=== PATIENT | male | born 1975 | race African-American/Black ===

== ENCOUNTER 2018-03-04 19:33 | Inpatient (IN) ==
[2018-03-04] MEDS ORDERED: Sodium Chlor 0.9% Inj 500 ML IV.SIG ONE (22:14)
--- NOTE | 2018-03-04 22:34 | ED ---
HPI General Chief complaint: Dizziness Stated complaint: cold symp Time Seen by Provider: 03/04/18 22:09 Source: patient Mode of arrival: ambulatory History of Present Illness HPI narrative: The patient is a 42 year old male who presents to the [facility] emergency department with a history of feeling lightheaded and dizzy with standing for the last 2 weeks. He reports that this is gradually been getting worse with time. He reports that he has had urinary frequency and urgency associated with this. He reports having polydipsia, generalized fatigue. He reports that he has not had any appetite and lost weight over the last 2 weeks. He denies having a primary care physician. On review of systems otherwise, the patient reports that he has had intermittent chest pain recently. He reports that he is also had shortness of breath with exertion. He denies having any recent fevers, cough or congestion, neck pain, abdominal pain, vomiting, diarrhea, or neurologic symptoms Related Data Home Medications Medication Instructions Recorded Confirmed No Known Home Medications 03/04/18 03/04/18 Allergies Allergy/AdvReac Type Severity Reaction Status Date / Time No Known Allergies Allergy Unverified 03/04/18 22:13 Review of Systems Except as stated in HPI: all other systems reviewed are negative PMFSH Medical History Medical History Patient denies medical problems (Acute) Surgical History Surgical History No history of previous surgery (Acute) No history of previous surgery (Acute) Social History Social History Substance History: Active Abuse Second Hand Smoke Exposure: Yes Smoking Status: Current some day smoker Tobacco Type: Cigarettes How Often Do You Have a Drink Containing Alcohol: 2 to 4 times a month Recent Travel in [facility] within the Last 8 Weeks: No Substance Abuse Detail Marijuana: Substance Use Status: Active Route Used Substance Abuse: Inhalation Substance Frequency: OCC Reason for Use: Socialization Immunization History Tetanus Immunization: Unsure Hx Influenza Vaccine This Season: No Exam Narrative Exam Narrative: General: The patient is a well-developed well-nourished male in no acute distress Head and Neck exam: Head is normocephalic atraumatic. Eyes: EOMI, pupils are equal round and reactive to light. Nose: Midline septum with pink mucous membranes Mouth: Dentition unremarkable. Dry mucus membranes. Posterior oropharynx is not erythematous. No tonsillar hypertrophy. Uvula midline. Airway patent. Neck: No palpable lymphadenopathy. No nuchal rigidity. No thyromegaly. Cardiovascular: Regular rate and rhythm without murmurs, gallops, or rubs. No pulse deficit to the extremities on simultaneous auscultation and palpation of his radial artery. Lungs: Clear to auscultation bilaterally. No wheezes, rhonchi, or rales. Abdomen: Soft, without tenderness to palpation in all 4 quadrants of the abdomen. No guarding, rebound, or rigidity. Normal bowel sounds are audible. Negative Hummel's sign. No tenderness on palpation of McBurney's point. Extremities: No clubbing, cyanosis, or edema. 2+ pulses in all 4 extremities. No calf tenderness on palpation. Back: No spinous process tenderness to palpation. Bilateral CVA tenderness reported on palpation. Neurologic Exam: Grossly nonfocal. Skin Exam: No rash noted. Intact skin that is warm and dry. Course Hospital Course: During the course of the patient's emergency department visit, the patient's history, examination, and differential diagnosis were reviewed with the patient. The patient was placed on a rug cleaner hand with oximetry and frequent blood pressure monitoring. The patient had IV access obtained and blood work sent for analysis. The patient was initially provided normal saline 1 L IV fluid bolus. The patient after laboratory studies were done was noted to have acute renal failure. The patient was given a second liter of normal saline IV fluids. Regarding the patient's hyperkalemia the patient was treated with Kayexalate 15 g p.o. 1, regular insulin 10 units IV to treat his hyperglycemia, 1 amp of bicarb, and calcium chloride to stabilize his cardiac membranes. The patient's results were discussed with the patient, including the plan of care. I explained that further testing and/ or monitoring is indicated based on the patient's history, examination, and/ or laboratory findings. Therefore, I recommended admission for additional evaluation. The patient expressed understanding and was agreeable with this plan. The patient was admitted to the hospital in guarded condition and sent to a bed under the care of [facility] service. Consultations Consultation #1: The patient's case including history, pertinent physical examination findings, and laboratory studies were discussed with . It was agreed that the patient would be admitted to the hospitalist service. Time: 00:20 Initial Documented Vital Signs Temperature 98.2 F 03/04/18 19:54 Pulse Rate 95 H 03/04/18 19:54 Blood Pressure 148/97 H 03/04/18 19:54 Pulse Oximetry 98 03/04/18 19:54 Last Documented Vital Signs Temperature 98.2 F 03/04/18 19:54 Pulse Rate 60 03/05/18 06:53 Respiratory Rate 16 03/05/18 06:53 Blood Pressure 155/78 H 03/05/18 06:53 Pulse Oximetry 100 03/05/18 06:53 Medical Decision Making MDM Narrative Medical decision making narrative: The patients laboratory studies remarkable for a white count of 10.6, hemoglobin 17.5, platelets 333 with neutrophils that are 86.1. PT PTT unremarkable, chemistry is remarkable for a glucose that is 1038, potassium 6.6, renal failure noted with a creatinine of 2.35, lipase within normal limits, chloride 89, bicarb 23.6, BUN 41, alk phos 122, albumin 5.2, urinalysis showed small occult blood, 500 greater glucose, alcohol level less than 3. Radiology studies were remarkable for a chest x-ray that shows no acute abnormality. CT scan of the brain shows no acute abnormality. The patient will be admitted to the hospital for acute renal failure with new onset diabetes. Differential Diagnosis Differential Diagnosis: New-onset diabetes, versus orthostasis, versus dehydration, versus electrolyte derangements Medical Records Medical records reviewed: Yes I reviewed the patient's medical records. Lab Data Lab results reviewed: Yes I reviewed the patient's lab results. Result diagrams: 03/05/18 02:43 03/05/18 02:43 Lab Results 03/04/18 03/04/18 03/04/18 Range/Units 22:36 22:36 22:36 WBC 10.6 (4.0-11.0) th/mm3 RBC 5.95 H (4.50-5.90) mil/mm3 Hgb 17.5 H (13.0-17.0) gm/dL Hct 54.2 H (39.0-51.0) % MCV 91.1 (80.0-100.0) fL MCH 29.4 (27.0-34.0) pg MCHC 32.2 (32.0-36.0) % RDW 12.8 (11.6-17.2) % Plt Count 333 (150-450) th/mm3 MPV 10.0 (7.0-11.0) fL Neut % (Auto) 86.1 H (16.0-70.0) % Lymph % (Auto) 9.7 (9.0-44.0) % Levy % (Auto) 3.1 (0.0-8.0) % Eos % (Auto) 0.1 (0.0-4.0) % Baso % (Auto) 1.0 (0.0-2.0) % Neut # (Auto) 9.2 H (1.8-7.7) th/mm3 Lymph # (Auto) 1.0 (1.0-4.8) th/mm3 Levy # (Auto) 0.3 (0.0-0.9) th/mm3 Eos # (Auto) 0.0 (0.0-0.4) th/mm3 Baso # (Auto) 0.1 (0.0-0.2) th/mm3 WBC Differential . Differential Comment Auto diff final PT (9.8-11.6) sec INR Ratio APTT (24.3-30.1) sec Sodium 127 L (136-145) meq/L Potassium 6.6 H* (3.5-5.1) meq/L Chloride 89 L (98-107) meq/L Carbon Dioxide 23.6 (21.0-32.0) meq/L Anion Gap 14 (5-15) meq/L BUN 41 H (7-18) mg/dL Creatinine 2.35 H (0.60-1.30) mg/dL Estimated GFR 37 L (>89) mL/min POC Glucose (68-110) mg/dl Random Glucose 1038 H* (74-106) mg/dL Calcium 11.1 H (8.5-10.1) mg/dL Magnesium 3.2 H (1.5-2.5) mg/dL Total Bilirubin 0.4 (0.2-1.0) mg/dL AST 22 (15-37) U/L ALT 28 (12-78) U/L Alkaline Phosphatase 122 H (45-117) U/L Total Creatine Kinase 337 H (39-308) U/L CK-MB (CK-2) 0.9 (0.5-3.6) ng/mL CK-MB (CK-2) % 0.3 (0.0-4.0) % Troponin I Less than 0.02 L (0.02-0.05) ng/mL B-Natriuretic Peptide 4 (0-100) pg/mL Total Protein 10.3 H (6.4-8.2) g/dL Albumin 5.2 H (3.4-5.0) g/dL Lipase 236 (73-393) U/L Urine Color (Yellw/Straw) Urine Clarity (Clear) Urine pH (5.0-8.5) Ur Specific Sutton (1.002-1.035) Urine Protein (Neg-Trace) mg/dL Urine Glucose (UA) (Negative) mg/dL Urine Ketones (Negative) mg/dL Urine Occult Blood (Negative) Urine Nitrate (Negative) Urine Bilirubin (Negative) Urine Urobilinogen (Less than 2) mg/dL Ur Leukocyte Esterase (Negative) Urine RBC (0-3) /hpf Urine WBC (0-5) /hpf Micro UA Comment Urine Culture Comments Serum Alcohol Less than 3 (0-5) mg/dL 03/04/18 03/04/18 03/05/18 Range/Units 22:36 22:40 00:01 WBC (4.0-11.0) th/mm3 RBC (4.50-5.90) mil/mm3 Hgb (13.0-17.0) gm/dL Hct (39.0-51.0) % MCV (80.0-100.0) fL MCH (27.0-34.0) pg MCHC (32.0-36.0) % RDW (11.6-17.2) % Plt Count (150-450) th/mm3 MPV (7.0-11.0) fL Neut % (Auto) (16.0-70.0) % Lymph % (Auto) (9.0-44.0) % Levy % (Auto) (0.0-8.0) % Eos % (Auto) (0.0-4.0) % Baso % (Auto) (0.0-2.0) % Neut # (Auto) (1.8-7.7) th/mm3 Lymph # (Auto) (1.0-4.8) th/mm3 Levy # (Auto) (0.0-0.9) th/mm3 Eos # (Auto) (0.0-0.4) th/mm3 Baso # (Auto) (0.0-0.2) th/mm3 WBC Differential Differential Comment PT 10.2 (9.8-11.6) sec INR 1.0 Ratio APTT 24.9 (24.3-30.1) sec Sodium (136-145) meq/L Potassium (3.5-5.1) meq/L Chloride (98-107) meq/L Carbon Dioxide (21.0-32.0) meq/L Anion Gap (5-15) meq/L BUN (7-18) mg/dL Creatinine (0.60-1.30) mg/dL Estimated GFR (>89) mL/min POC Glucose Greater than 600 H* (68-110) mg/dl Random Glucose (74-106) mg/dL Calcium (8.5-10.1) mg/dL Magnesium (1.5-2.5) mg/dL Total Bilirubin (0.2-1.0) mg/dL AST (15-37) U/L ALT (12-78) U/L Alkaline Phosphatase (45-117) U/L Total Creatine Kinase (39-308) U/L CK-MB (CK-2) (0.5-3.6) ng/mL CK-MB (CK-2) % (0.0-4.0) % Troponin I (0.02-0.05) ng/mL B-Natriuretic Peptide (0-100) pg/mL Total Protein (6.4-8.2) g/dL Albumin (3.4-5.0) g/dL Lipase (73-393) U/L Urine Color Straw (Yellw/Straw) Urine Clarity Clear (Clear) Urine pH 5.0 (5.0-8.5) Ur Specific Sutton 1.028 (1.002-1.035) Urine Protein Negative (Neg-Trace) mg/dL Urine Glucose (UA) 500 or greater (Negative) mg/dL Urine Ketones Trace (Negative) mg/dL Urine Occult Blood Small H (Negative) Urine Nitrate Negative (Negative) Urine Bilirubin Negative (Negative) Urine Urobilinogen Less than 2 (Less than 2) mg/dL Ur Leukocyte Esterase Negative (Negative) Urine RBC 1 (0-3) /hpf Urine WBC Less than 1 (0-5) /hpf Micro UA Comment Culture not ind Urine Culture Comments Culture not ind Serum Alcohol (0-5) mg/dL 03/05/18 03/05/18 03/05/18 Range/Units 01:15 02:43 02:43 WBC 10.4 (4.0-11.0) th/mm3 RBC 5.48 (4.50-5.90) mil/mm3 Hgb 16.1 (13.0-17.0) gm/dL Hct 48.5 (39.0-51.0) % MCV 88.5 (80.0-100.0) fL MCH 29.4 (27.0-34.0) pg MCHC 33.2 (32.0-36.0) % RDW 12.5 (11.6-17.2) % Plt Count 292 (150-450) th/mm3 MPV 9.7 (7.0-11.0) fL Neut % (Auto) 82.9 H (16.0-70.0) % Lymph % (Auto) 11.2 (9.0-44.0) % Levy % (Auto) 5.1 (0.0-8.0) % Eos % (Auto) 0.1 (0.0-4.0) % Baso % (Auto) 0.7 (0.0-2.0) % Neut # (Auto) 8.6 H (1.8-7.7) th/mm3 Lymph # (Auto) 1.2 (1.0-4.8) th/mm3 Levy # (Auto) 0.5 (0.0-0.9) th/mm3 Eos # (Auto) 0.0 (0.0-0.4) th/mm3 Baso # (Auto) 0.1 (0.0-0.2) th/mm3 WBC Differential . Differential Comment Auto diff final PT (9.8-11.6) sec INR Ratio APTT (24.3-30.1) sec Sodium 140 D (136-145) meq/L Potassium 4.7 D (3.5-5.1) meq/L Chloride 105 D (98-107) meq/L Carbon Dioxide 24.6 (21.0-32.0) meq/L Anion Gap 10 (5-15) meq/L BUN 36 H (7-18) mg/dL Creatinine 1.80 H (0.60-1.30) mg/dL Estimated GFR 51 L (>89) mL/min POC Glucose Greater than 600 H* (68-110) mg/dl Random Glucose 650 H* D (74-106) mg/dL Calcium 10.9 H (8.5-10.1) mg/dL Magnesium (1.5-2.5) mg/dL Total Bilirubin 0.4 (0.2-1.0) mg/dL AST 17 (15-37) U/L ALT 27 (12-78) U/L Alkaline Phosphatase 103 (45-117) U/L Total Creatine Kinase (39-308) U/L CK-MB (CK-2) (0.5-3.6) ng/mL CK-MB (CK-2) % (0.0-4.0) % Troponin I (0.02-0.05) ng/mL B-Natriuretic Peptide (0-100) pg/mL Total Protein 8.7 H D (6.4-8.2) g/dL Albumin 4.4 D (3.4-5.0) g/dL Lipase (73-393) U/L Urine Color (Yellw/Straw) Urine Clarity (Clear) Urine pH (5.0-8.5) Ur Specific Sutton (1.002-1.035) Urine Protein (Neg-Trace) mg/dL Urine Glucose (UA) (Negative) mg/dL Urine Ketones (Negative) mg/dL Urine Occult Blood (Negative) Urine Nitrate (Negative) Urine Bilirubin (Negative) Urine Urobilinogen (Less than 2) mg/dL Ur Leukocyte Esterase (Negative) Urine RBC (0-3) /hpf Urine WBC (0-5) /hpf Micro UA Comment Urine Culture Comments Serum Alcohol (0-5) mg/dL 03/05/18 03/05/18 Range/Units 03:08 06:51 WBC (4.0-11.0) th/mm3 RBC (4.50-5.90) mil/mm3 Hgb (13.0-17.0) gm/dL Hct (39.0-51.0) % MCV (80.0-100.0) fL MCH (27.0-34.0) pg MCHC (32.0-36.0) % RDW (11.6-17.2) % Plt Count (150-450) th/mm3 MPV (7.0-11.0) fL Neut % (Auto) (16.0-70.0) % Lymph % (Auto) (9.0-44.0) % Levy % (Auto) (0.0-8.0) % Eos % (Auto) (0.0-4.0) % Baso % (Auto) (0.0-2.0) % Neut # (Auto) (1.8-7.7) th/mm3 Lymph # (Auto) (1.0-4.8) th/mm3 Levy # (Auto) (0.0-0.9) th/mm3 Eos # (Auto) (0.0-0.4) th/mm3 Baso # (Auto) (0.0-0.2) th/mm3 WBC Differential Differential Comment PT (9.8-11.6) sec INR Ratio APTT (24.3-30.1) sec Sodium (136-145) meq/L Potassium (3.5-5.1) meq/L Chloride (98-107) meq/L Carbon Dioxide (21.0-32.0) meq/L Anion Gap (5-15) meq/L BUN (7-18) mg/dL Creatinine (0.60-1.30) mg/dL Estimated GFR (>89) mL/min POC Glucose 579 H* 508 H* (68-110) mg/dl Random Glucose (74-106) mg/dL Calcium (8.5-10.1) mg/dL Magnesium (1.5-2.5) mg/dL Total Bilirubin (0.2-1.0) mg/dL AST (15-37) U/L ALT (12-78) U/L Alkaline Phosphatase (45-117) U/L Total Creatine Kinase (39-308) U/L CK-MB (CK-2) (0.5-3.6) ng/mL CK-MB (CK-2) % (0.0-4.0) % Troponin I (0.02-0.05) ng/mL B-Natriuretic Peptide (0-100) pg/mL Total Protein (6.4-8.2) g/dL Albumin (3.4-5.0) g/dL Lipase (73-393) U/L Urine Color (Yellw/Straw) Urine Clarity (Clear) Urine pH (5.0-8.5) Ur Specific Sutton (1.002-1.035) Urine Protein (Neg-Trace) mg/dL Urine Glucose (UA) (Negative) mg/dL Urine Ketones (Negative) mg/dL Urine Occult Blood (Negative) Urine Nitrate (Negative) Urine Bilirubin (Negative) Urine Urobilinogen (Less than 2) mg/dL Ur Leukocyte Esterase (Negative) Urine RBC (0-3) /hpf Urine WBC (0-5) /hpf Micro UA Comment Urine Culture Comments Serum Alcohol (0-5) mg/dL Imaging Data Radiologist's impression: ITS Impressions Head CT 03/04/18 22:14 CONCLUSION: 1. Negative CT Head non contrast. Chest X-Ray 03/04/18 22:16 CONCLUSION: The lungs are clear. ECG Data Attestation: I personally reviewed and interpreted this ECG as follows: Interpretation: The patient had an EKG done on arrival that shows a sinus rhythm heart rate is 70, QRS duration 91 ms, QTC 363 ms. The patient is noted to have what appears to be early repolarization with peak T waves, ST segment downsloping of lead III with T waves that are inverted in lead III and V1. Discharge Plan Discharge Disposition Patient Disposition: 30 Still Patient Physicians Team ED Provider: Ann Rivas Primary Care Provider: Primary Care Kimberly Amos Attending Provider: Fam Clark Interventions Interventions: Vital Signs Last Done: 03/04/18 21:29 Status ED Status: Admitted Patient
--- NOTE | 2018-03-04 23:09 | XR ---
EXAM DATE: 03/04/2018 10:37 PM EDT AGE/SEX: 42 years / Male INDICATIONS: Cough. Lower back pain. CLINICAL DATA: This is the patient's initial encounter. Patient reports that signs and symptoms have been present for 1 day and indicates a pain score of 0/10. MEDICAL/SURGICAL HISTORY: None. None. COMPARISON: No prior exams available for comparison. FINDINGS: A single AP view of the chest demonstrates the lungs to be symmetrically aerated without evidence of mass, infiltrate or effusion. The cardiomediastinal contours are unremarkable. Osseous structures a re intact. CONCLUSION: The lungs are clear. Electronically signed by: Geraldo Lowe MD 03/04/2018 11:07 PM EDT
[2018-03-04 23:11] LABS: Bilirubin,Urine Negative (Negative); Clarity,Urine Clear (Clear); Color,Urine Straw (Yellw/Straw); Glucose,Urine (UA) 500 or Greater mg/dL (Negative); Leukocyte Esterase,Urine Negative (Negative); Nitrite,Urine Negative (Negative); Specific Gravity,Urine 1.028 (1.002-1.035)
[2018-03-04 23:21] LABS: Activated Partial Thrombo Time 24.9 sec (24.3-30.1); Baso # (Auto) 0.1 th/mm3 (0.0-0.2); Eos % (Auto) 0.1 % (0.0-4.0); Hematocrit 54.2 % (39.0-51.0); Hemoglobin 17.5 gm/dL (13.0-17.0); Lymph % (Auto) 9.7 % (9.0-44.0); Mean Corpuscular HGB Conc 32.2 % (32.0-36.0); Mean Corpuscular Hemoglobin 29.4 pg (27.0-34.0); Mean Corpuscular Volume 91.1 fL (80.0-100.0); Mono # (Auto) 0.3 th/mm3 (0.0-0.9); Mono % (Auto) 3.1 % (0.0-8.0); Neut # (Auto) 9.2 th/mm3 (1.8-7.7); Neut % (Auto) 86.1 % (16.0-70.0); Platelet Count 333 th/mm3 (150-450); Prothrombin Time 10.2 sec (9.8-11.6); Red Blood Count 5.95 mil/mm3 (4.50-5.90); Red Cell Distribution Width 12.8 % (11.6-17.2); White Blood Count 10.6 th/mm3 (4.0-11.0)
[2018-03-04] MEDS ORDERED: Sod Chloride 0.9% Inj 1,000 ML IV.SIG ONE (23:40)
[2018-03-04 23:49] LABS: Alanine Aminotransferase 28 U/L (12-78); Albumin 5.2 g/dL (3.4-5.0); Alkaline Phosphatase 122 U/L (45-117); Anion Gap 14 meq/L (5-15); Aspartate Aminotransferase 22 U/L (15-37); Blood Urea Nitrogen 41 mg/dL (7-18); Calcium 11.1 mg/dL (8.5-10.1); Carbon Dioxide 23.6 meq/L (21.0-32.0); Chloride 89 meq/L (98-107); Creatine Kinase 337 U/L (39-308); Glomerular Filtration Rate 37 mL/min (>89); Lipase 236 U/L (73-393); Magnesium 3.2 mg/dL (1.5-2.5); Sodium 127 meq/L (136-145); Total Protein 10.3 g/dL (6.4-8.2)
[2018-03-04 23:52] LABS: Glucose,Random 1038 mg/dL (74-106); Potassium 6.6 meq/L (3.5-5.1)
[2018-03-05] MEDS ORDERED: Sod Chloride 0.9% Inj 1,000 ML IV.SIG ONE
[2018-03-05] MEDS ORDERED: Sodium Bicarbonate 8.4% Inj 50 MEQ/50 ML Syringe IV.PUSH ONE ×2 (00:01→00:40)
[2018-03-05] MEDS ORDERED: Sodium Polystyrene Sulfonate/Sorbitol Liq 15 GM/60 ML UDC PO ONE (00:01)
[2018-03-05] MEDS ORDERED: Calcium Chloride Inj 1 GM in Sodium Chlor 0.9% Inj 100 ML IV.SIG ONE (00:01)
[2018-03-05 00:06] LABS: CKMB Percent 0.3 % (0.0-4.0); Creatine Kinase MB 0.9 ng/mL (0.5-3.6)
[2018-03-05] MEDS ORDERED: Dextrose 50% in Water 50 ML Vial IV.PUSH PRN ×2 (00:21→09:33)
[2018-03-05] MEDS ORDERED: Bisacodyl 10 MG Supp RECTAL PRN (00:22)
[2018-03-05] MEDS ORDERED: Acetaminophen 325 MG Tablet PO PRN (00:22)
[2018-03-05] MEDS ORDERED: Insulin Detemir Inj 1,000 UNIT/10 ML Vial SQ SCH ×2 (00:30→21:00)
[2018-03-05] MEDS: Sod Chloride 0.9% Inj 1,000 ML IV.CONT SCH ×5 (02:06→23:14)
--- NOTE | 2018-03-05 02:26 | P.HPIM ---
History of Present Illness Primary Care Physician: No Primary Care Physician History of Present Illness: This is a 42-year-old male with no significant PMH who presented to ER with complaints of generalized weakness x2 wks in addition to increased thirst and increased urination. Denies fever, chills, nausea, vomiting or diarrhea. Also notes decreased PO intake w/ unintentional weight loss. No previous h/o similar symptoms. On arrival, BP 148/97, HR 95, O2 sat 98% on RA, Afebrile. Hemoglobin 17.5. INR 1.0. Na 127. K+ 6.6. Creatinine 2.35. BS 1038. Troponin negative. UA negative for UTI. Alcohol negative. CXR with no acute findings. CT Head negative. Patient denies previous history of DM, but does note family history of diabetes. S/p IVF in ER. - Diagnosis (1) Diabetes mellitus, new onset (2) Hyperkalemia (3) Hyponatremia (4) CLARA (acute kidney injury) - Inpatient Certification If this patient has been admitted as an Inpatient: I certify that the inpatient services were ordered in accordance with Medicare regulations governing the order. This includes certification that hospital inpatient services are reasonable and necessary and in the case of services not specified as inpatient-only under 42 CFR 419.22(n), that they are appropriately provided as inpatient services in accordance to with the 2-midnight benchmark under 43 CFR 412.3(e) Estimated Total Length of Stay (Days): 2 Plans for Post Hospital Care: Not yet determined Review of Systems All other systems reviewed negative except as stated in HPI [facility] - History History Provided By: Patient, Family Member - Medical History Medical History: Medical History (Last Reviewed 03/05/18 @ 00:06 by Ann Rivas MD) Patient denies medical problems - Surgical History Surgical History: Surgical History (Last Reviewed 03/05/18 @ 00:06 by Ann Rivas MD) No history of previous surgery No history of previous surgery - Tobacco History Second Hand Smoke Exposure: Yes Tobacco Use In Past 30 Days: Yes Smoking Status: Current some day smoker Tobacco Type: Cigarettes - Alcohol History How Often Do You Have a Drink Containing Alcohol: 2 to 4 times a month - Substance Use History Substance History: Active Abuse - Substance Use Type Marijuana Status: Active Route Used: Inhalation Frequency: OCC Reason for Use: Socialization - Travel History Recent Travel in the [facility] Within the Last 8 Weeks: No - Immunization History Tetanus Immunization: Unsure Hx Influenza Vaccine This Season: No Medications and Allergies Active Medications: Active Medications Acetaminophen (Tylenol) 650 mg PO Q4H PRN PRN Reason: FEVER/PAIN 1-2 Al Hydroxide/Mg Hydroxide (Milk Of Magnesia Liq) 30 ml PO Q12H PRN PRN Reason: Mild Constipation Bisacodyl (Dulcolax Supp) 10 mg RECTAL DAILY PRN PRN Reason: SEVERE CONSITIPATION Dextrose (D50w Vial) 50 ml IV.PUSH UNSCH PRN PRN Reason: PER HYPOGLYCEMIA PROTOCOL Glucagon (Glucagon Inj) 1 mg OTHER PRN PRN PRN Reason: for Hypoglycemia Protocol Sodium Chloride (Ns Inj) 1,000 mls @ 150 mls/hr IV.CONT .Q6H40M SLIME Insulin Aspart (Novolog Insulin Suppl Scale Inj) 0 unit SQ ACHS SLIME; Protocol Insulin Detemir (Levemir Inj) 10 unit SQ HS SLIME Last Admin: 03/05/18 01:16 Dose: 10 unit Lactulose (Lactulose Liq) 30 ml PO DAILY PRN PRN Reason: SEVERE CONSITIPATION Metoclopramide HCl (Reglan Inj) 5 mg IV.PUSH Q6HR PRN; Protocol PRN Reason: NAUSEA OR VOMITING Senna/Docusate Sodium (Pamela-Colace) 1 tab PO BID SLIME Sennosides (Senokot) 17.2 mg PO Q12H PRN PRN Reason: Moderate Constipation Allergies Allergy/AdvReac Type Severity Reaction Status Date / Time No Known Allergies Allergy Unverified 03/04/18 22:13 Home Medications Medication Instructions Recorded Confirmed Type No Known Home Medications 03/04/18 03/04/18 History Exam Vital signs: Vital Signs 03/04/18 19:54 03/04/18 21:29 03/05/18 00:44 Temperature 98.2 F Pulse Rate 95 H 70 80 Respiratory Rate 17 17 Blood Pressure 148/97 H 156/90 H 134/77 Pulse Oximetry 98 100 Intake & Output 03/04/18 03/04/18 03/05/18 06:59 18:59 06:59 Intake Total 500 / 500 Output Total 800 / 800 Balance -300 / -300 Weight 99.79 kg Intake: IV 500 / 500 NS Inj 500 ML @ Wide Open IV. 500 / 500 SIG ONCE ONE Rx#:[id number] Output: Urine 800 / 800 Narrative: PE: GENERAL: Very pleasant young black male in no acute distress. Appears tired, fatigued. at bedside. HEENT: PERRLA, EOMI. No scleral icterus or conjunctival pallor. No lid lag or facial droop. CARDIOVASCULAR: Regular rate and rhythm. No obvious murmurs to auscultation. No chest tenderness to palpation. RESPIRATORY: No obvious rhonchi or wheezing. Clear to auscultation. Breath sounds equal bilaterally. GASTROINTESTINAL: Abdomen soft, non-tender, nondistended. BS normal. MUSCULOSKELETAL: Extremities without clubbing, cyanosis, or edema. No obvious deformities. NEUROLOGICAL: Awake, alert and oriented x4. No focal neurologic deficits. Moving both upper and lower extremities spontaneously. Results - Labs CBC & Chem 7: 03/04/18 22:36 03/04/18 22:36 Labs: Short CBC 03/04/18 Range/Units 22:36 WBC 10.6 (4.0-11.0) th/mm3 Hgb 17.5 H (13.0-17.0) gm/dL Hct 54.2 H (39.0-51.0) % Plt Count 333 (150-450) th/mm3 BMP 03/04/18 22:36 Sodium 127 L Potassium 6.6 H* Chloride 89 L Carbon Dioxide 23.6 BUN 41 H Creatinine 2.35 H Calcium 11.1 H Cardiac Enzymes 03/04/18 Range/Units 22:36 Total Creatine Kinase 337 H (39-308) U/L CK-MB (CK-2) 0.9 (0.5-3.6) ng/mL Troponin I Less than 0.02 L (0.02-0.05) ng/mL Liver Function 03/04/18 Range/Units 22:36 Total Bilirubin 0.4 (0.2-1.0) mg/dL AST 22 (15-37) U/L ALT 28 (12-78) U/L Alkaline Phosphatase 122 H (45-117) U/L Albumin 5.2 H (3.4-5.0) g/dL Urine 03/04/18 Range/Units 22:40 Urine Color Straw (Yellw/Straw) Urine Clarity Clear (Clear) Urine pH 5.0 (5.0-8.5) Ur Specific [place] 1.028 (1.002-1.035) Urine Protein Negative (Neg-Trace) mg/dL Urine Glucose (UA) 500 or greater (Negative) mg/dL - Imaging Impressions Head CT 03/04/18 22:14 CONCLUSION: 1. Negative CT Head non contrast. Chest X-Ray 03/04/18 22:16 CONCLUSION: The lungs are clear. Caprini VTE Risk Assessment Caprini VTE Risk Assessment: No/Low Risk (score <= 1) Caprini Risk Assessment Model: Point Value = 1 Point Value = 2 Point Value = 3 Point Value = 5 Age 41-60 Minor surgery BMI > 25 kg/m2 Swollen legs Varicose veins or History of unexplained or recurrent spontaneous Oral contraceptives or hormone replacement Sepsis (< 1 month) Serious lung disease, including pneumonia (< 1 month) Abnormal pulmonary function Acute myocardial infarction Congestive heart failure (< 1 month) History of inflammatory bowel disease Medical patient at bed rest Age 61-74 Arthroscopic surgery Major open surgery (> 45 min) Laparoscopic surgery (> 45 min) Malignancy Confined to bed (> 72 hours) Immobilizing plaster cast Central venous access Age >= 75 History of VTE Family history of VTE Factor V Leiden Prothrombin [id number] Lupus anticoagulant Anticardiolipin antibodies Elevated serum homocysteine Heparin-induced thrombocytopenia Other congenital or acquired thrombophilia Stroke (< 1 month) Elective arthroplasty Hip, pelvis, or leg fracture Acute spinal cord injury (< 1 month) Prophylaxis Regimen: Total Risk Factor Score Risk Level Prophylaxis Regimen 0-1 Low Early ambulation 2 Moderate Order ONE of the following: *Sequential Compression Device (SCD) *Heparin 5000 units SQ BID 3-4 Higher Order ONE of the following medications: *Heparin 5000 units SQ TID *Enoxaparin/Lovenox 40 mg SQ daily (WT < 150 kg, CrCl > 30 mL/min) *Enoxaparin/Lovenox 30 mg SQ daily (WT < 150 kg, CrCl > 10-29 mL/min) *Enoxaparin/Lovenox 30 mg SQ BID (WT < 150 kg, CrCl > 30 mL/min) AND/OR *Sequential Compression Device (SCD) 5 or more Highest Order ONE of the following medications: *Heparin 5000 units SQ TID (Preferred with Epidurals) *Enoxaparin/Lovenox 40 mg SQ daily (WT < 150 kg, CrCl > 30 mL/min) *Enoxaparin/Lovenox 30 mg SQ daily (WT < 150 kg, CrCl > 10-29 mL/min) *Enoxaparin/Lovenox 30 mg SQ BID (WT < 150 kg, CrCl > 30 mL/min) AND *Sequential Compression Device (SCD) Assessment and Plan - Assessment (1) Diabetes mellitus, new onset Code(s): E11.9 - Type 2 diabetes mellitus without complications Status: Acute (2) Hyperkalemia Code(s): E87.5 - Hyperkalemia Status: Acute (3) Hyponatremia Code(s): E87.1 - Hypo-osmolality and hyponatremia Status: Acute (4) CLARA (acute kidney injury) Code(s): N17.9 - Acute kidney failure, unspecified Status: Acute - Plan A/P: 1. DM: New Onset. +polydipsia, polyuria, decreased PO intake, and generalized weakness. BS 1038, no evidence of acidosis, aggressive IVF for hydration. Check Hgb A1c. Sliding scale w/ Accu-Cheks, Levemir 10u x1 now, Consult Loss Prevention Specialist, Consult Lacing Presser. Repeat labs in am. 2. Hyponatremia: Na 127, secondary to above, expect normalization w/ improvement in BS. IVF for hydration, repeat labs in am. 3. Hyperkalemia: K+ 6.6, +peaked T-waves on EKG, Telemetry, s/p Ca/Insulin/D50 /Kayexalate, repeat K+ in am. 4. CLARA: Creatinine 2.35, no previous labs for comparison but presumably new. U/a negative for UTI. IVF for hydration, repeat labs in am. 5. DVT Prophylaxis: SCD/Teds 6. Social work for d/c planning as needed. 7. Case discussed w/ ER physician at length, labs/records/imaging reviewed by me.
[2018-03-05 03:04] LABS: Baso # (Auto) 0.1 th/mm3 (0.0-0.2); Baso % (Auto) 0.7 % (0.0-2.0); Eos % (Auto) 0.1 % (0.0-4.0); Hematocrit 48.5 % (39.0-51.0); Hemoglobin 16.1 gm/dL (13.0-17.0); Lymph # (Auto) 1.2 th/mm3 (1.0-4.8); Lymph % (Auto) 11.2 % (9.0-44.0); Mean Corpuscular HGB Conc 33.2 % (32.0-36.0); Mean Corpuscular Hemoglobin 29.4 pg (27.0-34.0); Mean Corpuscular Volume 88.5 fL (80.0-100.0); Mean Platelet Volume 9.7 fL (7.0-11.0); Mono # (Auto) 0.5 th/mm3 (0.0-0.9); Mono % (Auto) 5.1 % (0.0-8.0); Neut # (Auto) 8.6 th/mm3 (1.8-7.7); Neut % (Auto) 82.9 % (16.0-70.0); Platelet Count 292 th/mm3 (150-450); Red Blood Count 5.48 mil/mm3 (4.50-5.90); Red Cell Distribution Width 12.5 % (11.6-17.2); White Blood Count 10.4 th/mm3 (4.0-11.0)
[2018-03-05 04:33] LABS: Alanine Aminotransferase 27 U/L (12-78); Albumin 4.4 g/dL (3.4-5.0); Alkaline Phosphatase 103 U/L (45-117); Anion Gap 10 meq/L (5-15); Aspartate Aminotransferase 17 U/L (15-37); Blood Urea Nitrogen 36 mg/dL (7-18); Calcium 10.9 mg/dL (8.5-10.1); Carbon Dioxide 24.6 meq/L (21.0-32.0); Chloride 105 meq/L (98-107); Glomerular Filtration Rate 51 mL/min (>89); Potassium 4.7 meq/L (3.5-5.1); Sodium 140 meq/L (136-145); Total Protein 8.7 g/dL (6.4-8.2)
[2018-03-05 04:36] LABS: Glucose,Random 650 mg/dL (74-106)
[2018-03-05] MEDS ORDERED: Insulin NovoLOG Aspart Correctional Sugar Inj SQ SCH (08:00)
[2018-03-05] MEDS: Senna/Docusate Sodium 8.6/50 MG Tablet PO SCH ×2 (09:13→20:59)
--- NOTE | 2018-03-05 10:36 | ECG ---
Date Performed: 03/04/2018 Time Performed: 22:26:36 PTAGE: 42 years EKG: Sinus rhythm EARLY REPOLARIZATION BORDERLINE ECG NO PREVIOUS TRACING DOCTOR: Alistair Slaughter Interpretating Date/Time 03/05/2018 10:34:32
[2018-03-05] MEDS: Insulin NovoLOG Aspart Correctional Sugar Inj SQ SCH ×3 (13:50→20:59)
[2018-03-05 22:45] LABS: Hemoglobin A1c 10.2 % (4.3-6.0)
[2018-03-06] MEDS: Insulin NovoLOG Aspart Correctional Sugar Inj SQ SCH (03:43)
[2018-03-06] MEDS: Sod Chloride 0.9% Inj 1,000 ML IV.CONT SCH ×4 (04:35→20:48)
[2018-03-06] MEDS ORDERED: Dextrose 50% in Water 50 ML Vial IV.PUSH PRN (13:16)
[2018-03-06 13:28] LABS: Calcium 9.1 mg/dL (8.5-10.1); Carbon Dioxide 24.1 meq/L (21.0-32.0); Potassium 4.6 meq/L (3.5-5.1)
[2018-03-06 15:27] LABS: Hematocrit 44.5 % (39.0-51.0); Hemoglobin 14.6 gm/dL (13.0-17.0); Mean Corpuscular HGB Conc 32.8 % (32.0-36.0); Mean Corpuscular Hemoglobin 28.8 pg (27.0-34.0); Mean Corpuscular Volume 87.8 fL (80.0-100.0); Mean Platelet Volume 9.6 fL (7.0-11.0); Platelet Count 210 th/mm3 (150-450); Red Blood Count 5.06 mil/mm3 (4.50-5.90); Red Cell Distribution Width 12.8 % (11.6-17.2); White Blood Count 7.1 th/mm3 (4.0-11.0)
--- NOTE | 2018-03-06 16:41 | P.PNIM ---
Subjective Interval history: Entry, the patient was seen earlier at 10 AM. The patient states he feels well, denies chest pain or shortness of breath. Denies fevers or chills. Denies cough. Denies diarrhea. Physical Exam Vital signs: Vital Signs 03/05/18 20:00 03/05/18 22:00 03/06/18 00:00 Temperature 98.4 F 98.4 F Pulse Rate 65 65 56 L Respiratory Rate 21 14 Blood Pressure 145/94 H 139/90 Pulse Oximetry 100 99 03/06/18 02:00 03/06/18 04:00 03/06/18 06:09 Temperature 97.6 F Pulse Rate 59 L 53 L 76 Respiratory Rate 17 Blood Pressure 157/101 H Pulse Oximetry 100 03/06/18 08:00 03/06/18 10:00 03/06/18 12:00 Temperature 98.8 F Pulse Rate 59 L 59 L 58 L Respiratory Rate 18 18 Blood Pressure 139/87 135/56 L Pulse Oximetry 100 99 03/06/18 14:00 Temperature Pulse Rate 95 H Respiratory Rate Blood Pressure Pulse Oximetry Intake & Output 03/05/18 03/06/18 03/06/18 18:59 06:59 18:59 Intake Total 2720 / 2720 2820 / 2820 1000 / 1000 Output Total 1025 / 1025 Balance 1695 / 1695 2820 / 2820 1000 / 1000 Intake: IV 1999 1000 / 1000 NS Inj 1,000 ML @ 150 mls/hr IV 1999 1000 / 1000 .CONT .Q6H40M [facility] Rx#:[id number] Oral 720 / 720 720 / 720 Oral Supplement 100 / 100 Output: Urine 1025 / 1025 Other: # Voids 2 Date of Last Bowel Movement 03/02/18 03/02/18 Narrative: GENERAL: Very pleasant young black male in no acute distress. Appears tired, fatigued. at bedside. HEENT: PERRLA, EOMI. No scleral icterus or conjunctival pallor. No lid lag or facial droop. CARDIOVASCULAR: Regular rate and rhythm. No obvious murmurs to auscultation. No chest tenderness to palpation. RESPIRATORY: No obvious rhonchi or wheezing. Clear to auscultation. Breath sounds equal bilaterally. GASTROINTESTINAL: Abdomen soft, non-tender, nondistended. BS normal. MUSCULOSKELETAL: Extremities without clubbing, cyanosis, or edema. No obvious deformities. NEUROLOGICAL: Awake, alert and oriented x4. No focal neurologic deficits. Moving both upper and lower extremities spontaneously. Results - Labs CBC & Chem 7: 03/06/18 14:52 03/06/18 12:15 Laboratory Results - last 24 hr 03/05/18 03/05/18 03/05/18 02:43 17:09 20:43 WBC RBC Hgb Hct MCV MCH MCHC RDW Plt Count MPV Hematology Comments Sodium Potassium Chloride Carbon Dioxide Anion Gap BUN Creatinine Estimated GFR POC Glucose 262 H 195 H Random Glucose Hemoglobin A1c 10.2 H Calcium 03/06/18 03/06/18 03/06/18 03:32 07:59 12:15 WBC RBC Hgb Hct MCV MCH MCHC RDW Plt Count MPV Hematology Comments Sodium 143 Potassium 4.6 Chloride 108 H Carbon Dioxide 24.1 Anion Gap 11 BUN 23 H Creatinine 1.14 Estimated GFR 86 L POC Glucose 199 H 143 H Random Glucose 226 H D Hemoglobin A1c Calcium 9.1 D 03/06/18 14:52 WBC 7.1 RBC 5.06 Hgb 14.6 Hct 44.5 MCV 87.8 MCH 28.8 MCHC 32.8 RDW 12.8 Plt Count 210 MPV 9.6 Hematology Comments Sodium Potassium Chloride Carbon Dioxide Anion Gap BUN Creatinine Estimated GFR POC Glucose Random Glucose Hemoglobin A1c Calcium Assessment and Plan - Assessment (1) Diabetes mellitus, new onset Code(s): E11.9 - Type 2 diabetes mellitus without complications Status: Acute (2) Hyperkalemia Code(s): E87.5 - Hyperkalemia Status: Acute (3) Hyponatremia Code(s): E87.1 - Hypo-osmolality and hyponatremia Status: Acute (4) CLARA (acute kidney injury) Code(s): N17.9 - Acute kidney failure, unspecified Status: Acute - Plan 1. DM: New Onset. +polydipsia, polyuria, decreased PO intake, and generalized weakness. BS 1038, no evidence of acidosis, aggressive IVF for hydration. Check Hgb A1c. Sliding scale w/ Accu-Cheks, Levemir 10u x1 now, Consult Professor Of Theology, Consult Event Executive. Repeat labs in am. 7/3 hemoglobin A1c elevated at 10.2. Diabetes is uncontrolled. Patient's blood sugar much better controlled on insulin Levemir and bolus therapy with insulin NovoLog, however the patient does not have medical insurance and I doubt the patient will be able to afford the medications once discharged. Therefore, I will discontinue insulin Levemir and supplemental scale with insulin NovoLog and will start the patient on insulin NPH 70/30 50 units subcu twice daily and switch the sliding scale to regular insulin. 2. Hyponatremia: Na 127, secondary to above, expect normalization w/ improvement in BS. IVF for hydration, repeat labs in am. 03/06 hyponatremia likely pseudohyponatremia from severe hyperglycemia. Sodium now within normal range. 3. Hyperkalemia: K+ 6.6, +peaked T-waves on EKG, Telemetry, s/p Ca/Insulin/D50 /Kayexalate, repeat K+ in am. 03/06 likely hyperkalemia from osmotic drag. Potassium much improved after IV fluid administration. 4. CLARA: Creatinine 2.35, no previous labs for comparison but presumably new. U/a negative for UTI. IVF for hydration, repeat labs in am. 03/06 creatinine much improved at 1.14. 5. DVT Prophylaxis: SCD/Teds 6. Social work for d/c planning as needed. Discharge Planning: Possible discharge in a.m. once the patient's blood sugars are stable on human insulin regimen.
[2018-03-06] MEDS: Senna/Docusate Sodium 8.6/50 MG Tablet PO SCH (20:47)
[2018-03-06] MEDS: Insulin NovoLIN Regular Correctional Sugar Inj SQ SCH ×2 (20:47→23:14)
[2018-03-07] MEDS: Sod Chloride 0.9% Inj 1,000 ML IV.CONT SCH ×3 (04:16→16:26)
[2018-03-07 05:18] LABS: Baso % (Auto) 0.6 % (0.0-2.0); Eos # (Auto) 0.1 th/mm3 (0.0-0.4); Eos % (Auto) 2.4 % (0.0-4.0); Hematocrit 41.1 % (39.0-51.0); Lymph # (Auto) 2.6 th/mm3 (1.0-4.8); Lymph % (Auto) 48.4 % (9.0-44.0); Mean Corpuscular HGB Conc 34.2 % (32.0-36.0); Mean Corpuscular Hemoglobin 29.7 pg (27.0-34.0); Mean Platelet Volume 9.7 fL (7.0-11.0); Mono # (Auto) 0.3 th/mm3 (0.0-0.9); Mono % (Auto) 5.4 % (0.0-8.0); Neut # (Auto) 2.4 th/mm3 (1.8-7.7); Neut % (Auto) 43.2 % (16.0-70.0); Platelet Count 217 th/mm3 (150-450); Red Blood Count 4.72 mil/mm3 (4.50-5.90); Red Cell Distribution Width 12.8 % (11.6-17.2); White Blood Count 5.5 th/mm3 (4.0-11.0)
[2018-03-07 05:36] LABS: Alanine Aminotransferase 22 U/L (12-78); Albumin 3.2 g/dL (3.4-5.0); Anion Gap 10 meq/L (5-15); Aspartate Aminotransferase 17 U/L (15-37); Blood Urea Nitrogen 16 mg/dL (7-18); Calcium 8.5 mg/dL (8.5-10.1); Carbon Dioxide 23.2 meq/L (21.0-32.0); Chloride 107 meq/L (98-107); Glomerular Filtration Rate Greater Than 89 mL/min (>89); Glucose,Random 270 mg/dL (74-106); Potassium 3.7 meq/L (3.5-5.1); Sodium 140 meq/L (136-145)
[2018-03-07 05:41] LABS: Alkaline Phosphatase 65 U/L (45-117); Total Protein 6.4 g/dL (6.4-8.2)
[2018-03-07] MEDS: Senna/Docusate Sodium 8.6/50 MG Tablet PO SCH ×2 (09:01→22:23)
[2018-03-07] MEDS: Insulin NovoLIN Regular Correctional Sugar Inj SQ SCH ×4 (09:47→22:21)
--- NOTE | 2018-03-07 16:02 | P.PNIM ---
Subjective Interval history: The patient denies chest pain or shortness of breath. Denies dysuria, abdominal pain, nausea vomiting. Sugars severely elevated in the 300s range. Physical Exam Vital signs: Vital Signs 03/06/18 16:00 03/06/18 18:00 03/06/18 20:00 Temperature 98.2 F Pulse Rate 75 75 69 Respiratory Rate 18 23 Blood Pressure 157/107 H 160/109 H Pulse Oximetry 99 100 03/06/18 22:00 03/07/18 00:00 03/07/18 02:00 Temperature 98.3 F Pulse Rate 69 56 L 60 Respiratory Rate 15 Blood Pressure 137/82 Pulse Oximetry 96 03/07/18 04:00 03/07/18 06:00 03/07/18 08:00 Temperature 98.2 F 98.4 F Pulse Rate 66 62 61 Respiratory Rate 15 18 Blood Pressure 157/92 H 115/60 Pulse Oximetry 99 100 Intake & Output 03/06/18 03/07/18 03/07/18 18:59 06:59 18:59 Intake Total 1780 / 1780 3020 / 3020 Output Total 800 / 800 Balance 980 / 980 3020 / 3020 Intake: IV 1000 / 1000 1999 NS Inj 1,000 ML @ 150 mls/hr IV 1000 / 1000 1999 .CONT .Q6H40M [facility] Rx#:[id number] Oral 680 / 680 1020 / 1020 Oral Supplement 100 / 100 Output: Urine 800 / 800 Other: # Voids 2 5 Date of Last Bowel Movement 03/02/18 03/06/18 03/06/18 # Bowel Movements 1 Narrative: GENERAL: Very pleasant young black male in no acute distress. Appears tired, fatigued. at bedside. HEENT: PERRLA, EOMI. No scleral icterus or conjunctival pallor. No lid lag or facial droop. CARDIOVASCULAR: Regular rate and rhythm. No obvious murmurs to auscultation. No chest tenderness to palpation. RESPIRATORY: No obvious rhonchi or wheezing. Clear to auscultation. Breath sounds equal bilaterally. GASTROINTESTINAL: Abdomen soft, non-tender, nondistended. BS normal. MUSCULOSKELETAL: Extremities without clubbing, cyanosis, or edema. No obvious deformities. NEUROLOGICAL: Awake, alert and oriented x4. No focal neurologic deficits. Moving both upper and lower extremities spontaneously. Results - Labs CBC & Chem 7: 03/07/18 04:29 03/07/18 04:29 Laboratory Results - last 24 hr 03/07/18 03/07/18 03/07/18 04:29 04:29 04:29 WBC 5.5 RBC 4.72 Hgb 14.0 Hct 41.1 MCV 87.0 MCH 29.7 MCHC 34.2 RDW 12.8 Plt Count 217 MPV 9.7 Neut % (Auto) 43.2 Lymph % (Auto) 48.4 H [place] % (Auto) 5.4 Eos % (Auto) 2.4 Baso % (Auto) 0.6 Neut # (Auto) 2.4 Lymph # (Auto) 2.6 [place] # (Auto) 0.3 Eos # (Auto) 0.1 Baso # (Auto) 0.0 WBC Differential . Differential Comment Auto diff final PT 10.0 INR 1.0 Sodium 140 Potassium 3.7 D Chloride 107 Carbon Dioxide 23.2 Anion Gap 10 BUN 16 Creatinine 1.02 Estimated GFR Greater than 89 POC Glucose Random Glucose 270 H Calcium 8.5 Magnesium 2.0 Total Bilirubin 0.4 AST 17 ALT 22 Alkaline Phosphatase 65 Total Protein 6.4 D Albumin 3.2 L 03/07/18 03/07/18 03/07/18 09:17 10:25 14:57 WBC RBC Hgb Hct MCV MCH MCHC RDW Plt Count MPV Neut % (Auto) Lymph % (Auto) [place] % (Auto) Eos % (Auto) Baso % (Auto) Neut # (Auto) Lymph # (Auto) [place] # (Auto) Eos # (Auto) Baso # (Auto) WBC Differential Differential Comment PT INR Sodium Potassium Chloride Carbon Dioxide Anion Gap BUN Creatinine Estimated GFR POC Glucose 255 H 382 H 325 H Random Glucose Calcium Magnesium Total Bilirubin AST ALT Alkaline Phosphatase Total Protein Albumin Assessment and Plan - Assessment (1) Diabetes mellitus, new onset Code(s): E11.9 - Type 2 diabetes mellitus without complications Status: Acute (2) Hyperkalemia Code(s): E87.5 - Hyperkalemia Status: Acute (3) Hyponatremia Code(s): E87.1 - Hypo-osmolality and hyponatremia Status: Acute (4) CLARA (acute kidney injury) Code(s): N17.9 - Acute kidney failure, unspecified Status: Acute - Plan 1. DM: New Onset. +polydipsia, polyuria, decreased PO intake, and generalized weakness. BS 1038, no evidence of acidosis, aggressive IVF for hydration. Check Hgb A1c. Sliding scale w/ Accu-Cheks, Levemir 10u x1 now, Consult Audit Reviewer, Consult Director Regulatory Compliance. Repeat labs in am. 03/06 hemoglobin A1c elevated at 10.2. Diabetes is uncontrolled. Patient's blood sugar much better controlled on insulin Levemir and bolus therapy with insulin NovoLog, however the patient does not have medical insurance and I doubt the patient will be able to afford the medications once discharged. Therefore, I will discontinue insulin Levemir and supplemental scale with insulin NovoLog and will start the patient on insulin NPH 70/30 15 units subcu twice daily and switch the sliding scale to regular insulin. 03/07 blood sugar still severely elevated. I will increase insulin NPH 70/30 from 15 units subcu twice daily to 20 units subcu twice daily. Continue SSI with regular insulin. 2. Hyponatremia: Na 127, secondary to above, expect normalization w/ improvement in BS. IVF for hydration, repeat labs in am. 03/06 hyponatremia likely pseudohyponatremia from severe hyperglycemia. Sodium now within normal range. Hyponatremia resolved. 3. Hyperkalemia: K+ 6.6, +peaked T-waves on EKG, Telemetry, s/p Ca/Insulin/D50 /Kayexalate, repeat K+ in am. 03/06 likely hyperkalemia from osmotic drag. Potassium much improved after IV fluid administration. Monitor BMP 4. CLARA: Creatinine 2.35, no previous labs for comparison but presumably new. U/a negative for UTI. IVF for hydration, repeat labs in am. 03/06 creatinine much improved at 1.14. 03/07. For creatinine down to baseline. CLARA resolved. Continue to monitor BUN/ creatinine, strict I's and O's. 5. DVT Prophylaxis: SCD/Teds 6. Social work for d/c planning as needed. Discharge Planning: Possible discharge in a.m. once the patient's blood sugars are stable on human insulin regimen. Blood sugar still severely elevated. Okay to transfer out of the medical floor.
[2018-03-08] MEDS: Sod Chloride 0.9% Inj 1,000 ML IV.CONT SCH ×5 (04:00→21:06)
[2018-03-08] MEDS: Insulin NovoLIN Regular Correctional Sugar Inj SQ SCH ×4 (10:08→21:04)
--- NOTE | 2018-03-08 13:46 | P.PN ---
Subjective Interval history: Mr. Pérez was afebrile with stable vital signs overnight. Patient was seen today; he reports that he is reluctant to administer insulin at home but he can if he has to. Patient denies any knowledge of family history of diabetes. Patient reports that he has always been eating healthily and does not think diet could have contributed to his symptoms. Patient reports that his thirst has improved since being in the hospital. No chest pain, shortness of breath, abnormal urination, or abnormal bowel movements. Physical Exam Vital signs: Vital Signs 03/07/18 14:00 03/07/18 16:00 03/07/18 18:00 Temperature 98.7 F Pulse Rate 69 57 L 63 Respiratory Rate 16 Blood Pressure 137/86 Pulse Oximetry 99 03/07/18 20:00 03/08/18 00:00 03/08/18 03:44 Temperature 98.6 F 97.6 F Pulse Rate 68 69 59 L Respiratory Rate 18 16 Blood Pressure 154/98 H 144/81 H Pulse Oximetry 99 96 03/08/18 04:00 03/08/18 08:00 03/08/18 12:00 Temperature 98.1 F 98.0 F 98.6 F Pulse Rate 62 61 68 Respiratory Rate 18 18 16 Blood Pressure 137/57 L 136/89 141/87 H Pulse Oximetry 98 99 99 Intake & Output 03/07/18 03/08/18 03/08/18 18:59 06:59 18:59 Intake Total 1800 / 1800 1420 / 1420 Output Total 1000 / 1000 750 / 750 Balance 800 / 800 670 / 670 Weight 105.6 kg Intake: IV 1000 / 1000 1000 / 1000 NS Inj 1,000 ML @ 150 mls/hr IV 1000 / 1000 1000 / 1000 .CONT .Q6H40M [facility] Rx#:[id number] Oral 800 / 800 420 / 420 Output: Urine 1000 / 1000 750 / 750 Other: Date of Last Bowel Movement 03/06/18 Narrative: GENERAL: NAD, at bedside HEENT: EOM grossly I. CARDIOVASCULAR: Regular rate and rhythm. No obvious murmurs to auscultation. RESPIRATORY: CTAB; normal rate GASTROINTESTINAL: Abdomen soft, non-tender, nondistended. BS normal. MUSCULOSKELETAL: Extremities without edema. Grossly normal ROM and motor function NEUROLOGICAL: Awake, alert and oriented x4. Grossly normal CN; grossly normal peripheral motor/sensory function Results - Labs CBC & Chem 7: 03/07/18 04:29 03/07/18 04:29 Laboratory Results - last 24 hr 03/07/18 03/07/18 03/07/18 14:57 18:00 21:22 POC Glucose 325 H 311 H 316 H 03/08/18 07:55 POC Glucose 207 H Assessment and Plan - Assessment (1) Diabetes mellitus, new onset Code(s): E11.9 - Type 2 diabetes mellitus without complications Status: Acute (2) Hyperkalemia Code(s): E87.5 - Hyperkalemia Status: Acute (3) Hyponatremia Code(s): E87.1 - Hypo-osmolality and hyponatremia Status: Acute (4) CLARA (acute kidney injury) Code(s): N17.9 - Acute kidney failure, unspecified Status: Acute - Plan 1. DM: New Onset. +polydipsia, polyuria, decreased PO intake, and generalized weakness. BS 1038 on admission. A1C 10.2 s/p aggressive fluid hydration *Since age <50, BMI 27, acute onset, I am not sure whether patient has an atypical autoimmune/type 1 component. Considered antibody testing but likely not financially viable. Discussed with family initiating metformin for mortality benefit but continuing 70/30 -seen by parts clerk plant maintenance -Continue Sliding scale Novolin/accuchecks -27 U sliding scale used 03/07, 24 U sliding scale use 03/08 -Will increase NPH 70/30 to 22 U BID 2. Electrolyte abnormalities Hyponatremia- resolved 03/06 Hyperkalemia- severe, K 6.6 on admission with peaked T waves. Was on Telemetry; s/p Ca/Insulin/D50/Kayexalate. resolved 03/06 -Will continue to monitor BMP 3. CLARA Cr 2.35 on admission; improved and at baseline as of 03/07 -Continue to monitor I/O, Cr DVT PPX -SCD's -Will help to arrange social work Code Status: Full Code Discharge Planning: Aim for discharge tomorrow once the patient's blood sugars are stable on 70/30 insulin
[2018-03-08] MEDS: Senna/Docusate Sodium 8.6/50 MG Tablet PO SCH ×2 (15:59→20:59)
--- NOTE | 2018-03-08 17:54 | P.DIET ---
Subjective Subjective Comments: Pt states the community health educator has worked with him. Objective - Objective % IBW: 106 Body Weight Used for Calculations: Actual Energy Needs - Lower Range (kCal/kg): 25 Lower Limit kCal/kg (kCals): 2,495 Lower Limit Protein Factor (Grams per Kg): 1.1 Lower Protein Needs (Protein): 110 Fluid Factor (ml/kg): 30 Estimated Fluid Needs (ml): 2,994 Dietitian Reviewed in Medical Record: Current diet, Curent medications, Intake & Output, Labs, Medical history Objective Comments: Pt's nutritional needs based on 99.8kg PMH: none Labs include: Hgb A1C 10.2, POC Glu 382, 325, 311 Assessment Assessment[place] [facility] [place]. Initiated diet education with pt. We discussed basic nutrition guidelines, I provided written materials. Will f/u tomorrow 03/09 for further education. Pt's nutritional needs as assessed above. His current calorie level is much too low. Recommend increasing diet to 2500 ADA. Recommendations: To meet pt's nutritional needs, please increase diet to 2500 ADA Will continue diabetes and diet education
[2018-03-08 22:45] LABS: Calcium 8.7 mg/dL (8.5-10.1); Carbon Dioxide 22.2 meq/L (21.0-32.0); Potassium 4.3 meq/L (3.5-5.1)
[2018-03-09] MEDS: Sod Chloride 0.9% Inj 1,000 ML IV.CONT SCH ×4 (02:29→17:35)
[2018-03-09] MEDS: Senna/Docusate Sodium 8.6/50 MG Tablet PO SCH ×2 (09:22→11:21)
[2018-03-09] MEDS: Lisinopril 10 MG Tablet PO SCH (09:23)
[2018-03-09] MEDS: Insulin NovoLIN Regular Correctional Sugar Inj SQ SCH ×4 (09:23→20:54)
[2018-03-09 14:11] LABS: Baso % (Auto) 0.8 % (0.0-2.0); Eos # (Auto) 0.1 th/mm3 (0.0-0.4); Eos % (Auto) 1.9 % (0.0-4.0); Hemoglobin 14.9 gm/dL (13.0-17.0); Lymph # (Auto) 1.8 th/mm3 (1.0-4.8); Lymph % (Auto) 34.1 % (9.0-44.0); Mean Corpuscular Hemoglobin 29.1 pg (27.0-34.0); Mean Corpuscular Volume 88.1 fL (80.0-100.0); Mono # (Auto) 0.3 th/mm3 (0.0-0.9); Mono % (Auto) 5.5 % (0.0-8.0); Neut # (Auto) 3.1 th/mm3 (1.8-7.7); Neut % (Auto) 57.7 % (16.0-70.0); Platelet Count 226 th/mm3 (150-450); Red Blood Count 5.11 mil/mm3 (4.50-5.90); Red Cell Distribution Width 12.5 % (11.6-17.2); White Blood Count 5.4 th/mm3 (4.0-11.0)
[2018-03-09 14:41] LABS: Calcium 9.4 mg/dL (8.5-10.1); Carbon Dioxide 21.7 meq/L (21.0-32.0); Potassium 4.5 meq/L (3.5-5.1)
--- NOTE | 2018-03-09 14:50 | P.PN ---
Subjective Interval history: Mr. Pérez was afebrile with stable vital signs overnight. Patient does not report complaints currently and states that he feels stronger than previously. No chest pain or shortness of breath. Patient feels less thirsty than previously. Physical Exam Vital signs: Vital Signs 03/08/18 16:00 03/08/18 20:00 03/09/18 00:00 Temperature 98.4 F 97.9 F 97.7 F Pulse Rate 67 78 65 Respiratory Rate 16 18 18 Blood Pressure 139/85 141/97 H 149/80 H Pulse Oximetry 99 99 98 03/09/18 00:40 03/09/18 04:00 03/09/18 04:54 Temperature 97.3 F L Pulse Rate 70 64 63 Respiratory Rate Blood Pressure Pulse Oximetry 03/09/18 08:00 03/09/18 11:56 03/09/18 12:00 Temperature 97.8 F 97.6 F Pulse Rate 81 58 L 60 Respiratory Rate 20 18 Blood Pressure 137/70 139/73 Pulse Oximetry 97 99 Intake & Output 03/08/18 03/09/18 03/09/18 18:59 06:59 18:59 Intake Total 1480 / 1480 2040 / 2040 1000 / 1000 Output Total 500 / 500 0 / 0 Balance 980 / 980 2040 / 2040 1000 / 1000 Weight 106.4 kg Intake: IV 1000 / 1000 1800 / 1800 1000 / 1000 NS Inj 1,000 ML @ 150 mls/hr IV 1000 / 1000 1800 / 1800 1000 / 1000 .CONT .Q6H40M [facility] Rx#:[id number] Oral 480 / 480 240 / 240 Output: Urine 500 / 500 Stool 0 / 0 Other: # Voids 2 Date of Last Bowel Movement 03/08/18 03/08/18 Narrative: GENERAL: NAD HEENT: EOM grossly I. CARDIOVASCULAR: Regular rate and rhythm. No obvious murmurs to auscultation. RESPIRATORY: CTAB; normal rate GASTROINTESTINAL: Abdomen soft, non-tender, nondistended. BS normal. MUSCULOSKELETAL: Extremities without edema. Grossly normal ROM and motor function NEUROLOGICAL: Awake, alert. Grossly normal CN; grossly normal peripheral motor/ sensory function Results - Labs CBC & Chem 7: 03/09/18 13:22 03/09/18 13:22 Laboratory Results - last 24 hr 03/08/18 03/08/18 03/08/18 17:14 20:12 22:19 WBC RBC Hgb Hct MCV MCH MCHC RDW Plt Count MPV Neut % (Auto) Lymph % (Auto) [place] % (Auto) Eos % (Auto) Baso % (Auto) Neut # (Auto) Lymph # (Auto) [place] # (Auto) Eos # (Auto) Baso # (Auto) WBC Differential Differential Comment Sodium 137 Potassium 4.3 Chloride 104 Carbon Dioxide 22.2 Anion Gap 11 BUN 18 Creatinine 1.20 Estimated GFR 81 L POC Glucose 283 H 356 H Random Glucose 281 H Calcium 8.7 03/09/18 03/09/18 03/09/18 07:57 12:09 13:22 WBC RBC Hgb Hct MCV MCH MCHC RDW Plt Count MPV Neut % (Auto) Lymph % (Auto) [place] % (Auto) Eos % (Auto) Baso % (Auto) Neut # (Auto) Lymph # (Auto) [place] # (Auto) Eos # (Auto) Baso # (Auto) WBC Differential Differential Comment Sodium 137 Potassium 4.5 Chloride 104 Carbon Dioxide 21.7 Anion Gap 11 BUN 20 H Creatinine 1.18 Estimated GFR 83 L POC Glucose 308 H 392 H Random Glucose 375 H Calcium 9.4 03/09/18 13:22 WBC 5.4 RBC 5.11 Hgb 14.9 Hct 45.0 MCV 88.1 MCH 29.1 MCHC 33.0 RDW 12.5 Plt Count 226 MPV 10.0 Neut % (Auto) 57.7 Lymph % (Auto) 34.1 [place] % (Auto) 5.5 Eos % (Auto) 1.9 Baso % (Auto) 0.8 Neut # (Auto) 3.1 Lymph # (Auto) 1.8 [place] # (Auto) 0.3 Eos # (Auto) 0.1 Baso # (Auto) 0.0 WBC Differential . Differential Comment Auto diff final Sodium Potassium Chloride Carbon Dioxide Anion Gap BUN Creatinine Estimated GFR POC Glucose Random Glucose Calcium Assessment and Plan - Assessment (1) Diabetes mellitus, new onset Code(s): E11.9 - Type 2 diabetes mellitus without complications Status: Acute (2) Hyperkalemia Code(s): E87.5 - Hyperkalemia Status: Acute (3) Hyponatremia Code(s): E87.1 - Hypo-osmolality and hyponatremia Status: Acute (4) CLARA (acute kidney injury) Code(s): N17.9 - Acute kidney failure, unspecified Status: Acute - Plan 1. DM: New Onset. +polydipsia, polyuria, decreased PO intake, and generalized weakness. BS 1038 on admission. A1C 10.2 s/p aggressive fluid hydration Impression: Endocrinology consulted due to concern for possible autoimmune component/ type 1 DM/consideration of antibody testing. Initially, placed on Novolin 70/30 BID for financial concerns; uptitrated (18U BID -> 26 U BID) without significant improvement in blood glucose. -Metformin 1000mg BID -Lisinopril 10mg started for renal protection -Endocrinology consulted -Consistent with T2DM; recommend basal insulin rather than pre-mixed insulin due to risks of hypoglycemia at night with pre-mixed insulin -Consider 32-40 U Levemir vs Tresiba to be titrated to keep morning sugars 80-130 -Check in morning and 2 hrs postprandial after largest meal -Can f/u as outpatient in 2 weeks 2. Electrolyte abnormalities Hyponatremia- resolved 03/06 Hyperkalemia- severe, K 6.6 on admission with peaked T waves. Was on Telemetry; s/p Ca/Insulin/D50/Kayexalate. resolved 03/06 -Will continue to monitor BMP 3. CLARA Cr 2.35 on admission; improved and at baseline as of 03/07 -Continue to monitor I/O, Cr DVT PPX -SCD's -Will help to arrange discharge planning Discharge Planning: Aim for discharge tomorrow with Endocrine instructions
--- NOTE | 2018-03-09 15:23 | P.DIET ---
Subjective Subjective Comments: Pt asked many questions regarding his diet. States he can't see very well to read the materials provided. Objective - Diagnosis Hyperglycemia - Objective % IBW: 106 Body Weight Used for Calculations: Actual Energy Needs - Lower Range (kCal/kg): 25 Lower Limit kCal/kg (kCals): 2,495 Lower Limit Protein Factor (Grams per Kg): 1.1 Lower Protein Needs (Protein): 110 Fluid Factor (ml/kg): 30 Estimated Fluid Needs (ml): 2,994 Dietitian Reviewed in Medical Record: Current diet, Curent medications, Intake & Output, Labs, Medical history Objective Comments: Pt's nutritional needs based on 99.8kg PMH: none Labs include: Hgb A1C 10.2 Assessment Assessment: [facility] [place]. Discussed in detail the basics of carbohydrate counting, demonstrating easy ways to control serving sizes. Pt cannot read well the materials as vision is poor at this time. Pt's glucose levels remain high. Recommend diabetes education consult either inpatient or outpatient. Pt will need further reinforcement in basic self-management skills. Pt's nutritional needs as assessed above. His current calorie level is much too low. Recommend increasing diet to 2500 ADA. Recommendations: To meet pt's nutritional needs, please increase diet to 2500 ADA
--- NOTE | 2018-03-09 21:08 | P.CONEN ---
History of Present Illness Consult date: 03/09/18 Consult reason: Diabetes or abnormal blood glucose management History of Present Illness: Mr Pérez is a 42 years old Afro[place] man originally from [place] who presented to the hospital with severe hyperglycemia. The patient reports severe thirst and polyuria which he was trying to quench with Juices and water. His blood sugar on arrival was 1038 mg/dl. He is one of 5 siblings and has a positive family history of diabetes in his mother and his maternal grandmother. His father unfortunately when she patient was just 5 years old hence he is not aware of a family history on his father's side. On his presentation he did not have acidosis and was in acute renal failure. Currently he has been hydrated and on questioning reprots he has been feeling better and is not having the symptoms of hyperglycemia anymore. He was initially on basal bolus therapy but was switched over to premixed 70/30 out of concern of him being able to afford these medications on the long run seeing he does not have insurance. Otherwise concern has also been raised as to the possibility of him having type 1 diabetes seen his body habitus and his age. Review of Systems Comments: See HPI PMFSH - History History Provided By: Patient, Medical Record - Medical History Medical History: Medical History (Last Reviewed 03/05/18 @ 07:53 by Avani Montes) Patient denies medical problems - Surgical History Surgical History: Surgical History (Last Updated 03/09/18 @ 20:49 by Kartik Mireles MD) No history of previous surgery No history of previous surgery - Family History Family History: Family History (Last Updated 03/09/18 @ 20:49 by Kartik Mireles MD) Other Diabetes - Tobacco History Second Hand Smoke Exposure: No Tobacco Use In Past 30 Days: Yes Smoking Status: Current some day smoker Tobacco Type: Cigarettes - Alcohol History How Often Do You Have a Drink Containing Alcohol: 2 to 3 times a week - Substance Use History Substance History: No History of Abuse - Substance Use Type Marijuana Status: Active Route Used: Inhalation Frequency: weekends Reason for Use: Calm Down - Travel History [facility] the [facility] Within the Last 8 Weeks: No - Immunization History Tetanus Immunization: Unsure Hx Influenza Vaccine This Season: No Medications and Allergies Active Medications: Active Medications Acetaminophen (Tylenol) 650 mg PO Q4H PRN PRN Reason: FEVER/PAIN 1-2 Al Hydroxide/Mg Hydroxide (Milk Of Magnesia Liq) 30 ml PO Q12H PRN PRN Reason: Mild Constipation Bisacodyl (Dulcolax Supp) 10 mg RECTAL DAILY PRN PRN Reason: SEVERE CONSITIPATION Dextrose (D50w Vial) 50 ml IV.PUSH UNSCH PRN PRN Reason: PER HYPOGLYCEMIA PROTOCOL Dextrose (D50w Vial) 50 ml IV.PUSH UNSCH PRN PRN Reason: PER HYPOGLYCEMIA PROTOCOL Glucagon (Glucagon Inj) 1 mg OTHER PRN PRN PRN Reason: for Hypoglycemia Protocol Sodium Chloride (Ns Inj) 1,000 mls @ 150 mls/hr IV.CONT .Q6H40M [facility] Last Admin: 03/09/18 17:35 Dose: 150 mls/hr Insulin Human Isoph/Insulin Regular (Novolin 70/30 Inj) 26 units SQ BID@0800, 1700 [facility] Last Admin: 03/09/18 18:31 Dose: 26 units Insulin Human Regular (Novolin R Supplemental Scale) 0 units SQ ACHS [facility]; Protocol Last Admin: 03/09/18 18:31 Dose: 10 units Lactulose (Lactulose Liq) 30 ml PO DAILY PRN PRN Reason: SEVERE CONSITIPATION Lisinopril (Prinivil) 10 mg PO DAILY [facility] Last Admin: 03/09/18 09:23 Dose: 10 mg [facility] Admin: 03/09/18 18:30 Dose: 1,000 mg Metoclopramide HCl (Reglan Inj) 5 mg IV.PUSH Q6HR PRN; Protocol PRN Reason: NAUSEA OR VOMITING Senna/Docusate Sodium (Pamela-Colace) 1 tab PO BID [facility] Last Admin: 03/09/18 11:21 Dose: Not Given Sennosides (Senokot) 17.2 mg PO Q12H PRN PRN Reason: Moderate Constipation Allergies Allergy/AdvReac Type Severity Reaction Status Date / Time No Known Allergies Allergy Unverified 03/04/18 22:13 Home Medications Medication Instructions Recorded Confirmed Type No Known Home Medications 03/04/18 03/04/18 History Exam Vital signs: Vital Signs 03/09/18 00:00 03/09/18 00:40 03/09/18 04:00 Temperature 97.7 F 97.3 F L Pulse Rate 65 70 64 Respiratory Rate 18 Blood Pressure 149/80 H Pulse Oximetry 98 03/09/18 04:54 03/09/18 08:00 03/09/18 11:56 Temperature 97.8 F Pulse Rate 63 81 58 L Respiratory Rate 20 Blood Pressure 137/70 Pulse Oximetry 97 03/09/18 12:00 03/09/18 16:00 Temperature 97.6 F 97.5 F L Pulse Rate 60 85 Respiratory Rate 18 18 Blood Pressure 139/73 133/94 H Pulse Oximetry 99 99 Intake & Output 03/09/18 03/09/18 03/10/18 06:59 18:59 06:59 Intake Total 2040 / 2040 3800 / 3800 Output Total 0 / 0 Balance 2039 / 0 3800 / 3800 Weight 106.4 kg Intake: IV 1800 / 1800 1999 NS Inj 1,000 ML @ 150 mls/hr IV 1800 / 1800 1999 .CONT .Q6H40M [facility] Rx#:[id number] Oral 240 / 240 1799 / 1800 Output: Stool 0 / 0 Other: # Voids 2 4 Date of Last Bowel Movement 03/08/18 # Bowel Movements 1 - Constitutional no acute distress, cooperative - Routine HEENT Exam Head: Present: normocephalic, atraumatic Eye: Present: EOMI - Routine Neck Exam Present: supple, full ROM - Routine Cardiovascular Exam Present: RRR, S1, S2 - Routine Abdominal Exam Present: soft, normoactive bowel sounds - Routine Skin Exam Present: intact - Routine Neurological Exam Present: alert, oriented X3, CN II-XII intact, normal reflexes Results - Labs Result Diagrams: 03/09/18 13:22 03/09/18 13:22 Abnormal lab results 03/08/18 03/09/18 03/09/18 Range/Units 22:19 07:57 12:09 BUN (7-18) mg/dL Estimated GFR 81 L (>89) mL/min POC Glucose 308 H 392 H (68-110) mg/dl Random Glucose 281 H (74-106) mg/dL 03/09/18 03/09/18 03/09/18 Range/Units 13:22 17:02 19:37 BUN 20 H (7-18) mg/dL Estimated GFR 83 L (>89) mL/min POC Glucose 311 H 390 H (68-110) mg/dl Random Glucose 375 H (74-106) mg/dL Diabetes panel 03/08/18 03/09/18 Range/Units 22:19 13:22 Sodium 137 137 (136-145) meq/L Potassium 4.3 4.5 (3.5-5.1) meq/L Chloride 104 104 (98-107) meq/L Carbon Dioxide 22.2 21.7 (21.0-32.0) meq/L BUN 18 20 H (7-18) mg/dL Creatinine 1.20 1.18 (0.60-1.30) mg/dL Calcium 8.7 9.4 (8.5-10.1) mg/dL Calcium panel 03/08/18 03/09/18 Range/Units 22:19 13:22 Calcium 8.7 9.4 (8.5-10.1) mg/dL Pituitary panel 03/08/18 03/09/18 Range/Units 22:19 13:22 Sodium 137 137 (136-145) meq/L Potassium 4.3 4.5 (3.5-5.1) meq/L Chloride 104 104 (98-107) meq/L Carbon Dioxide 22.2 21.7 (21.0-32.0) meq/L BUN 18 20 H (7-18) mg/dL Creatinine 1.20 1.18 (0.60-1.30) mg/dL Calcium 8.7 9.4 (8.5-10.1) mg/dL Adrenal panel 03/08/18 03/09/18 Range/Units 22:19 13:22 Sodium 137 137 (136-145) meq/L Potassium 4.3 4.5 (3.5-5.1) meq/L Chloride 104 104 (98-107) meq/L Carbon Dioxide 22.2 21.7 (21.0-32.0) meq/L BUN 18 20 H (7-18) mg/dL Creatinine 1.20 1.18 (0.60-1.30) mg/dL Calcium 8.7 9.4 (8.5-10.1) mg/dL Assessment and Plan - Plan In summary this is a 42 years old patient with a positive family history of type 2 diabetes who presents to the hospital with severe hyperglycemia with acute renal failure and volume depletion with no history of acidosis who responded to hydration. Overall picture consistent with type 2 diabetes. From endocrine perspective concerns of newer insulin affordability noted however in risk of nocturnal hypoglycemia is higher with premixed insulin. Since patient may not need immediate long-term insulin once the Beta cell glucotoxicity has waned would recommend consideration of just Basal insulin with Tresiba or Levemir and to continue the Metformin at a target dose of 1000 mg BID. Otherwise on talking to the patient there is a possibility he could be placed on the health insurance of his Fiancee which may solve this problem. In case patient is switched back to basal insulin will recommend a target dose of 32 to 40 units to be titrated to keep his morning blood sugars between 80 - 130 for now. Recommend to check blood sugars in the morning and 2 hours post prandial his largest meal. Since patient may be discharged shortly have decided to not write the above orders tonight. In case needed will be happy to follow patient up as an outpatient in 2 weeks. Business card provided to patient to call for appointment if he is going to be here. Thank you for allowing me to participate in the medical management of this interesting patient.
[2018-03-10] MEDS: Sod Chloride 0.9% Inj 1,000 ML IV.CONT SCH (00:28)
[2018-03-10 07:24] LABS: Baso % (Auto) 0.5 % (0.0-2.0); Eos # (Auto) 0.1 th/mm3 (0.0-0.4); Eos % (Auto) 2.2 % (0.0-4.0); Hematocrit 40.1 % (39.0-51.0); Hemoglobin 13.6 gm/dL (13.0-17.0); Lymph # (Auto) 2.3 th/mm3 (1.0-4.8); Lymph % (Auto) 39.7 % (9.0-44.0); Mean Corpuscular HGB Conc 33.9 % (32.0-36.0); Mean Corpuscular Hemoglobin 29.4 pg (27.0-34.0); Mean Corpuscular Volume 86.7 fL (80.0-100.0); Mean Platelet Volume 9.8 fL (7.0-11.0); Mono # (Auto) 0.5 th/mm3 (0.0-0.9); Mono % (Auto) 8.6 % (0.0-8.0); Neut # (Auto) 2.8 th/mm3 (1.8-7.7); Platelet Count 214 th/mm3 (150-450); Red Blood Count 4.63 mil/mm3 (4.50-5.90); Red Cell Distribution Width 12.3 % (11.6-17.2); White Blood Count 5.7 th/mm3 (4.0-11.0)
[2018-03-10 07:52] LABS: Anion Gap 9 meq/L (5-15); Blood Urea Nitrogen 18 mg/dL (7-18); Calcium 8.9 mg/dL (8.5-10.1); Carbon Dioxide 24.1 meq/L (21.0-32.0); Chloride 108 meq/L (98-107); Chol/HDL Ratio 5.65 Ratio; Cholesterol 185 mg/dL (120-200); Glomerular Filtration Rate Greater Than 89 mL/min (>89); Glucose,Random 137 mg/dL (74-106); HDL Cholesterol 32.7 mg/dL (40.0-60.0); LDL Cholesterol,Calculated 116 mg/dL (0-99); Potassium 3.8 meq/L (3.5-5.1); Sodium 141 meq/L (136-145); Triglycerides 183 mg/dL (42-150)
[2018-03-10] MEDS: Insulin NovoLIN Regular Correctional Sugar Inj SQ SCH ×2 (08:00→12:57)
[2018-03-10] MEDS: Lisinopril 10 MG Tablet PO SCH (09:56)
--- NOTE | 2018-03-10 09:57 | P.PN ---
Subjective Interval history: awake and alert he had dietitian and bedside diabetes teaching d/w him hypoglycemic awareness was seen by Dr. sahni- OP ff up with him Physical Exam Vital signs: Vital Signs 03/09/18 11:56 03/09/18 12:00 03/09/18 16:00 Temperature 97.6 F 97.5 F L Pulse Rate 58 L 60 85 Respiratory Rate 18 18 Blood Pressure 139/73 133/94 H Pulse Oximetry 99 99 03/09/18 20:00 03/10/18 00:00 03/10/18 04:00 Temperature 97.8 F 98.1 F 98.1 F Pulse Rate 74 82 68 Respiratory Rate 18 19 Blood Pressure 151/96 H 137/88 131/74 Pulse Oximetry 100 98 99 03/10/18 04:49 Temperature Pulse Rate 66 Respiratory Rate Blood Pressure Pulse Oximetry Intake & Output 03/09/18 03/10/18 03/10/18 18:59 06:59 18:59 Intake Total 3800 / 3800 1000 / 1000 Balance 3800 / 3800 1000 / 1000 Weight 105.7 kg Intake: IV 2000 / 1999 1000 / 1000 NS Inj 1,000 ML @ 150 mls/hr IV 2000 / 2000 1000 / 1000 .CONT .Q6H40M [facility] Rx#:[id number] Oral 1800 / 1800 Other: # Voids 4 Date of Last Bowel Movement 03/08/18 # Bowel Movements 1 - Constitutional no acute distress - Routine HEENT Exam Head: Present: normocephalic Eye: Present: PERRL ENT: Present: mucous membranes moist - Routine Neck Exam Present: supple - Routine Respiratory Exam Present: CTA bilaterally - Routine Cardiovascular Exam Present: RRR - Routine Abdominal Exam Present: soft, normoactive bowel sounds - Routine Extremities Exam Present: full ROM, pulses intact - Routine Skin Exam Present: intact - Routine Neurological Exam Present: oriented X3 Results - Labs CBC & Chem 7: 03/10/18 06:14 03/10/18 06:14 Laboratory Results - last 24 hr 03/09/18 03/09/18 03/09/18 12:09 13:22 13:22 WBC 5.4 RBC 5.11 Hgb 14.9 Hct 45.0 MCV 88.1 MCH 29.1 MCHC 33.0 RDW 12.5 Plt Count 226 MPV 10.0 Neut % (Auto) 57.7 Lymph % (Auto) 34.1 [place] % (Auto) 5.5 Eos % (Auto) 1.9 Baso % (Auto) 0.8 Neut # (Auto) 3.1 Lymph # (Auto) 1.8 Richardson # (Auto) 0.3 Eos # (Auto) 0.1 Baso # (Auto) 0.0 WBC Differential . Differential Comment Auto diff final Sodium 137 Potassium 4.5 Chloride 104 Carbon Dioxide 21.7 Anion Gap 11 BUN 20 H Creatinine 1.18 Estimated GFR 83 L POC Glucose 392 H Random Glucose 375 H Calcium 9.4 Triglycerides Cholesterol LDL Cholesterol, Calc HDL Cholesterol Cholesterol/HDL Ratio 03/09/18 03/09/18 03/10/18 17:02 19:37 06:14 WBC 5.7 RBC 4.63 Hgb 13.6 Hct 40.1 MCV 86.7 MCH 29.4 MCHC 33.9 RDW 12.3 Plt Count 214 MPV 9.8 Neut % (Auto) 49.0 Lymph % (Auto) 39.7 Richardson % (Auto) 8.6 H Eos % (Auto) 2.2 Baso % (Auto) 0.5 Neut # (Auto) 2.8 Lymph # (Auto) 2.3 Richardson # (Auto) 0.5 Eos # (Auto) 0.1 Baso # (Auto) 0.0 WBC Differential . Differential Comment Auto diff final Sodium Potassium Chloride Carbon Dioxide Anion Gap BUN Creatinine Estimated GFR POC Glucose 311 H 390 H Random Glucose Calcium Triglycerides Cholesterol LDL Cholesterol, Calc HDL Cholesterol Cholesterol/HDL Ratio 03/10/18 03/10/18 06:14 08:02 WBC RBC Hgb Hct MCV MCH MCHC RDW Plt Count MPV Neut % (Auto) Lymph % (Auto) Richardson % (Auto) Eos % (Auto) Baso % (Auto) Neut # (Auto) Lymph # (Auto) Richardson # (Auto) Eos # (Auto) Baso # (Auto) WBC Differential Differential Comment Sodium 141 Potassium 3.8 Chloride 108 H Carbon Dioxide 24.1 Anion Gap 9 BUN 18 Creatinine 1.05 Estimated GFR Greater than 89 POC Glucose 161 H Random Glucose 137 H D Calcium 8.9 Triglycerides 183 H Cholesterol 185 LDL Cholesterol, Calc 116 H HDL Cholesterol 32.7 L Cholesterol/HDL Ratio 5.65 Assessment and Plan - Assessment (1) Diabetes mellitus, new onset Code(s): E11.9 - Type 2 diabetes mellitus without complications Status: Acute (2) Hyperkalemia Code(s): E87.5 - Hyperkalemia Status: Acute (3) Hyponatremia Code(s): E87.1 - Hypo-osmolality and hyponatremia Status: Resolved (4) CLARA (acute kidney injury) Code(s): N17.9 - Acute kidney failure, unspecified Status: Acute - Plan 42 years old male 1. DM: New Onset. +polydipsia, polyuria, decreased PO intake, and generalized weakness. BS 1038 on admission. A1C 10.2 s/p aggressive fluid hydration Impression: Endocrinology consulted due to concern for possible autoimmune component/ type 1 DM/consideration of antibody testing. Initially, placed on Novolin 70/30 BID for financial concerns; uptitrated (18U BID -> 26 U BID) without significant improvement in blood glucose. -Metformin 1000mg BID -Lisinopril 10mg started for renal protection -Endocrinology consulted -Consistent with T2DM; recommend basal insulin rather than pre-mixed insulin due to risks of hypoglycemia at night with pre-mixed insulin -Consider 32-40 U Levemir vs Tresiba to be titrated to keep morning sugars 80-130 -Check in morning and 2 hrs postprandial after largest meal d/w CM- unable to affor Levemer- can get 70/30 at [facility] -Can f/u as outpatient in 2 weeks d/w him neeeds OP ff up- maintenance care- like Podiatry check 2. Electrolyte abnormalities- resolved Hyponatremia- resolved 03/06 Hyperkalemia- severe, K 6.6 on admission with peaked T waves. Was on Telemetry; s/p Ca/Insulin/D50/Kayexalate. resolved 03/06 -Will continue to monitor BMP 3. CLARA- resolved Cr 2.35 on admission; improved and at baseline as of 03/07 -Continue to monitor I/O, Cr DVT PPX -SCD's - HOme today glucometer and [facility] diabetes teaching providied
--- NOTE | 2018-03-10 10:16 | P.DS ---
Date of admission: 03/05/18 00:40 Primary care physician: No Primary Care Physician Attending physician on discharge: Connerliliana Ekaterina Anticipated date of discharge: 03/10/18 Brief History from admission: This is a 42-year-old male with no significant PMH who presented to ER with complaints of generalized weakness x2 wks in addition to increased thirst and increased urination. Denies fever, chills, nausea, vomiting or diarrhea. Also notes decreased PO intake w/ unintentional weight loss. No previous h/o similar symptoms. On arrival, BP 148/97, HR 95, O2 sat 98% on RA, Afebrile. Hemoglobin 17.5. INR 1.0. Na 127. K+ 6.6. Creatinine 2.35. BS 1038. Troponin negative. UA negative for UTI. Alcohol negative. CXR with no acute findings. CT Head negative. Patient denies previous history of DM, but does note family history of diabetes. S/p IVF in ER. DS: Diagnosis - Discharge Diagnosis (1) Diabetes mellitus, new onset Status: Acute (2) Hyperkalemia Status: Acute (3) CLARA (acute kidney injury) Status: Acute DS: Medications - Discharge Medications Prescriptions: insulin NPH and regular human [Novolin 70/30 U-100 Insulin] 30 units SUB-Q BID@ 0800,1700 30 Days #30 ml lisinopril 10 mg PO DAILY #30 tab metformin [Glucophage] 1,000 mg PO BIDPC #60 tab DS: Summary Hospital Course: 42 years old male 1. DM: New Onset. +polydipsia, polyuria, decreased PO intake, and generalized weakness. BS 1038 on admission. A1C 10.2 s/p aggressive fluid hydration Impression: Endocrinology consulted due to concern for possible autoimmune component/ type 1 DM/consideration of antibody testing. Initially, placed on Novolin 70/30 BID for financial concerns; uptitrated (18U BID -> 26 U BID) without significant improvement in blood glucose. -Metformin 1000mg BID -Lisinopril 10mg started for renal protection -Endocrinology consulted -Consistent with T2DM; recommend basal insulin rather than pre-mixed insulin due to risks of hypoglycemia at night with pre-mixed insulin -Consider 32-40 U Levemir vs Tresiba to be titrated to keep morning sugars 80-130 -Check in morning and 2 hrs postprandial after largest meal d/w CM- unable to affor Levemer- can get 70/30 at [facility] -Can f/u as outpatient in 2 weeks d/w him neeeds OP ff up- maintenance care- like Podiatry check d/w with [facility] skilled nursing complication of uncontrolled DM- eg, foot uinfectin, nephropathy, retinopathy, risk for heat disease and stroke with uncontrolled DM- patient expressed full understanding 2. Electrolyte abnormalities- resolved Hyponatremia- resolved 03/06 Hyperkalemia- severe, K 6.6 on admission with peaked T waves. Was on Telemetry; s/p Ca/Insulin/D50/Kayexalate. resolved 03/06 -Will continue to monitor BMP 3. CLARA- resolved Cr 2.35 on admission; improved and at baseline as of 03/07 -Continue to monitor I/O, Cr DVT PPX -SCD's - HOme today glucometer and [facility] diabetes teaching providied - Time Spent with Patient Total time spent providing and/or coordinating discharge services: - Quality: VTE Deep Vein Thrombosis/Pulmonary Embolism Present on Admission: No Exam Vital signs: Vital Signs 03/09/18 11:56 03/09/18 12:00 03/09/18 16:00 Temperature 97.6 F 97.5 F L Pulse Rate 58 L 60 85 Respiratory Rate 18 18 Blood Pressure 139/73 133/94 H Pulse Oximetry 99 99 03/09/18 20:00 03/10/18 00:00 03/10/18 04:00 Temperature 97.8 F 98.1 F 98.1 F Pulse Rate 74 82 68 Respiratory Rate 18 19 Blood Pressure 151/96 H 137/88 131/74 Pulse Oximetry 100 98 99 03/10/18 04:49 Temperature Pulse Rate 66 Respiratory Rate Blood Pressure Pulse Oximetry Intake & Output 03/09/18 03/10/18 03/10/18 18:59 06:59 18:59 Intake Total 3800 / 3800 1000 / 1000 Balance 3800 / 3800 1000 / 1000 Weight 105.7 kg Intake: IV 1999 1000 / 1000 NS Inj 1,000 ML @ 150 mls/hr IV 1999 1000 / 1000 .CONT .[id number] SLIME Rx#:[id number] Oral 1800 / 1800 Other: # Voids 4 Date of Last Bowel Movement 03/08/18 # Bowel Movements 1 - Constitutional no acute distress - Routine HEENT Exam Head: Present: normocephalic Eye: Present: EOMI ENT: Present: mucous membranes moist Results Procedures completed during hospitalization: none Labs on day of discharge: Labs from last 24 hours 03/10/18 03/10/18 03/10/18 08:02 06:14 06:14 WBC 5.7 RBC 4.63 Hgb 13.6 Hct 40.1 MCV 86.7 MCH 29.4 MCHC 33.9 RDW 12.3 Plt Count 214 MPV 9.8 Neut % (Auto) 49.0 Lymph % (Auto) 39.7 Warren % (Auto) 8.6 H Eos % (Auto) 2.2 Baso % (Auto) 0.5 Neut # (Auto) 2.8 Lymph # (Auto) 2.3 Warren # (Auto) 0.5 Eos # (Auto) 0.1 Baso # (Auto) 0.0 WBC Differential . Differential Comment Auto diff final Sodium 141 Potassium 3.8 Chloride 108 H Carbon Dioxide 24.1 Anion Gap 9 BUN 18 Creatinine 1.05 Estimated GFR Greater than 89 POC Glucose 161 H Random Glucose 137 H D Calcium 8.9 Triglycerides 183 H Cholesterol 185 LDL Cholesterol, Calc 116 H HDL Cholesterol 32.7 L Cholesterol/HDL Ratio 5.65 03/09/18 03/09/18 03/09/18 19:37 17:02 13:22 WBC 5.4 RBC 5.11 Hgb 14.9 Hct 45.0 MCV 88.1 MCH 29.1 MCHC 33.0 RDW 12.5 Plt Count 226 MPV 10.0 Neut % (Auto) 57.7 Lymph % (Auto) 34.1 Warren % (Auto) 5.5 Eos % (Auto) 1.9 Baso % (Auto) 0.8 Neut # (Auto) 3.1 Lymph # (Auto) 1.8 Warren # (Auto) 0.3 Eos # (Auto) 0.1 Baso # (Auto) 0.0 WBC Differential . Differential Comment Auto diff final Sodium Potassium Chloride Carbon Dioxide Anion Gap BUN Creatinine Estimated GFR POC Glucose 390 H 311 H Random Glucose Calcium Triglycerides Cholesterol LDL Cholesterol, Calc HDL Cholesterol Cholesterol/HDL Ratio 03/09/18 03/09/18 13:22 12:09 WBC RBC Hgb Hct MCV MCH MCHC RDW Plt Count MPV Neut % (Auto) Lymph % (Auto) Warren % (Auto) Eos % (Auto) Baso % (Auto) Neut # (Auto) Lymph # (Auto) Warren # (Auto) Eos # (Auto) Baso # (Auto) WBC Differential Differential Comment Sodium 137 Potassium 4.5 Chloride 104 Carbon Dioxide 21.7 Anion Gap 11 BUN 20 H Creatinine 1.18 Estimated GFR 83 L POC Glucose 392 H Random Glucose 375 H Calcium 9.4 Triglycerides Cholesterol LDL Cholesterol, Calc HDL Cholesterol Cholesterol/HDL Ratio - Impressions ITS Impressions Head CT 03/04/18 22:14 CONCLUSION: 1. Negative CT Head non contrast. Chest X-Ray 03/04/18 22:16 CONCLUSION: The lungs are clear. Discharge Plan - Discharge Disposition Patient Disposition: Discharge Home - Discharge Condition Condition: Good - Discharge Order Discharge Orders: Discharge Order (Routine); Ordered 03/10/18 Ordered By: Camron Tobar - Physicians Team Primary Care Provider: Primary Care Bette,Kimberly Attending Provider: Camron Tobar Other Providers: Kartik Mireles MD
== END 2018-03-10 17:52 | disposition home or self-care (01) ==
LOC: EDACCT# → NEPE 19:33 → NEDA 03-05 00:40 → HIMC 03-05 14:21 → N04 03-07 20:00
PROVIDERS: ADMIT Internal Medicine; ATTEND Internal Medicine